=== PATIENT | female | born 1960 | race American Indian/Alaskan Native ===

== ENCOUNTER 2017-04-16 22:23 | Emergency (ER) | payer OTHER ==
[2017-04-17] MEDS ORDERED: MOTRIN PO ONE (01:33)
[2017-04-17] MEDS ORDERED: MOTRIN ONE (01:33)
--- NOTE | 2017-04-17 02:06 | Emergency Department Report ---
ED Fall HPI - General Chief Complaint: Fall Stated Complaint: FALL Time Seen by Provider: 04/17/17 01:42 Source: patient, family Mode of arrival: Wheelchair - History of Present Illness Initial Comments: Patient reports that she fell today when she was on escalator. She said she got caught and fell and hit her right shoulder and she is having pain in her right neck and right shoulder. Pain is 8 out of 10 and aching. Worse with movement better with resting. She says she is also having a headache and she hit the right side of her head when she fell and pain is also 8 out of 10 and a can. No [id number] medication taken prior to coming to the emergency room. Patient denies any nausea or vomiting. Denies any chest wall or abdominal trauma. Denies any laceration or swelling to her extremities from falling. Denies any dizziness or visual difficulties. Patient blood pressure is 188/105 and she has a blood pressure intake several blood pressure medication which she says she did not take today. MD Complaint: fall -: This evening Fall From: standing When Fall Occurred: 1-3 hours [employer] Fall Witnessed: yes, by family, yes, by bystander Place Fall Occurred: other (at the mall) Loss of Consciousness: none Prolonged Down Time?: no Symptoms Prior to Fall: none Location: head, neck Location - Extremities: Right: Shoulder (pain after fall) Severity: severe Severity scale (0 -10): 8 Quality: aching Context: tripped/slipped Associated Symptoms: headache, neck pain. denies: numbness, weakness, chest paint, shortness of breath, abdominal pain, hematuria, unable to walk, lightheaded, vertigo, confusion - Related Data Previous Rx's Medication Instructions Recorded Last Taken Type Methocarbamol [Robaxin-750] 750 mg PO Q12H PRN 6 Days #12 04/17/17 Unknown Rx tablet traMADol [Ultram] 50 mg PO Q6HR PRN 4 Days #12 tablet 04/17/17 Unknown Rx Allergies Allergy/AdvReac Type Severity Reaction Status Date / Time No Known Allergies Allergy Verified 04/16/17 23:35 ED Review of Systems ROS: Stated complaint: FALL Other details as noted in HPI Comment: All other systems reviewed and negative Constitutional: no symptoms reported Eyes: denies: eye pain, eye discharge, vision change ENT: denies: throat pain Respiratory: no symptoms reported Cardiovascular: denies: chest pain, palpitations, dyspnea on exertion, orthopnea , edema, syncope, paroxysmal nocturnal dyspnea Gastrointestinal: denies: abdominal pain, nausea, vomiting, diarrhea, constipation Genitourinary: denies: urgency, dysuria, frequency, hematuria, discharge Musculoskeletal: arthralgia, myalgia. denies: back pain, joint swelling Skin: denies: rash Neurological: headache. denies: weakness, numbness, paresthesias, confusion, abnormal gait, vertigo ED Past Medical Hx - Past Medical History Previous Medical History?: Yes Hx Hypertension: Yes - Surgical History Past Surgical History?: No - Family History Family history: hypertension - Social History Smoking Status: Never Smoker Substance Use Type: None - Medications Home Medications: Home Medications Medication Instructions Recorded Confirmed Last Taken Type Methocarbamol [Robaxin-750] 750 mg PO Q12H PRN 6 Days #12 04/17/17 Unknown Rx tablet traMADol [Ultram] 50 mg PO Q6HR PRN 4 Days #12 tablet 04/17/17 Unknown Rx ED Physical Exam - General Limitations: Language Barrier General appearance: alert, in no apparent distress - Head Head exam: Present: atraumatic, normocephalic, normal inspection - Expanded Head Exam Expanded Head exam: Absent: laceration, abrasion, contusion, hematoma, racoon eyes, shane's sign, general tenderness, tenderness of temporal artery, CSF rhinorrhea , CSF otorrhea - Eye Eye exam: Present: normal appearance, PERRL, EOMI. Absent: nystagmus, periorbital swelling, periorbital tenderness - ENT ENT exam: Present: normal exam, normal orophraynx, mucous membranes moist - Neck Neck exam: Present: normal inspection, full ROM, other (no C-spine tenderness). Absent: tenderness, meningismus, lymphadenopathy, thyromegaly - Respiratory Respiratory exam: Present: normal lung sounds bilaterally. Absent: respiratory distress, chest wall tenderness - Cardiovascular Cardiovascular Exam: Present: regular rate, normal rhythm, normal heart sounds. Absent: systolic murmur, diastolic murmur - GI/Abdominal GI/Abdominal exam: Present: soft, normal bowel sounds. Absent: distended, tenderness, guarding, rebound, rigid, organomegaly, mass, bruit, pulsatile mass , hernia - Extremities Exam Extremities exam: Present: normal inspection, full ROM, tenderness (tenderness to palpate the right shoulder.), normal capillary refill, other (no clubbing, cyanosis or edema. Positive pulses all extremities. No neurovascular compromise. Patient able to move all extremities but painful with active range of motion to the right shoulder. No bony abnormalities seen to all extremities. No bony tenderness. Patient with +5/5 movement all extremities. No joint effusion, crepitus, swelling or erythema.). Absent: pedal edema, joint swelling, calf tenderness - Expanded Upper Extremity Exam Right General: Present: normal inspection. Absent: laceration, abrasion, nail injury (#), foreign body, amputation, avulsion Shoulder Exam: Present: normal inspection, full ROM (painful to move right shoulder but she is able to do full active range of motion but reports pain.), tenderness (right shoulder joint atGHJ and AC joint), tenderness over AC joint. Absent: swelling, abrasion, laceration, ecchymosis, deformity, crepidus, dislocation, erythema Upper Arm exam: Present: normal inspection, full ROM. Absent: tenderness, swelling, abrasion, laceration, ecchymosis, deformity, crepidus, dislocation, erythema Elbow exam: Present: normal inspection, full ROM. Absent: tenderness, swelling , abrasion, laceration, ecchymosis, deformity, crepidus, dislocation, erythema, effusion, pain w/ pronation/supination, tenderness over radial head Forearm Wrist exam: Present: normal inspection, full ROM. Absent: tenderness, swelling, abrasion, laceration, ecchymosis, deformity, crepidus, dislocation, erythema, tenderness over anatomical snuff box, pain with axial thumb loading Hand Wrist exam: Present: normal inspection, full ROM. Absent: tenderness, swelling, abrasion, laceration, ecchymosis, deformity, crepidus, dislocation, erythema, amputation, nail avulsion, subungual hematoma Neuro motor exam: Present: wrist extension intact, thumb opposition intact, thumb IP flexion intact, thumb adduction intact, fingers 2-5 abduction intact Neurosensory exam: Present: 2-point discrimination, radial nerve intact, ulnar nerve intact, median nerve intact Vascular: Present: normal capillary refill, radial pulse, brachial pulse, ulnar pulse. Absent: vascular compromise, Pallo, pulse deficit radial art, pulse deficit ulnar art, pulse deficit brachial art - Back Exam Back exam: Present: normal inspection, full ROM, other ( ambulates without any difficulties.). Absent: tenderness, CVA tenderness (R), CVA tenderness (L), muscle spasm, paraspinal tenderness, vertebral tenderness, rash noted - Expanded Back Exam Expanded Back exam: Absent: saddle anesthesia Back exam: Negative Straight Leg Raising: Left, Right - Neurological Exam Neurological exam: Present: alert, oriented X3, normal gait, reflexes normal. Absent: motor sensory deficit - Expanded Neurological Exam Expanded Neurological exam: Absent: innattentive, memory loss-remote event, memory loss- recent event, ataxia, receptive aphasia, expressive aphasia, total aphasia, tremor, protecting the airway Patient oriented to: Present: person, place, time Speech: Present: fluid speech Cranial nerves: EOM's Intact: Normal, Gag Reflex: Normal, Tongue Deviation: Normal, Nystagmus: Normal, Facial Sensation: Normal Cerebellar function: Romberg: Normal Upper motor neuron: Pronator Drift: Normal, Sensory Extinction: Normal Sensory exam: Upper Extremity Light Touch: Normal, Upper Extremity Temperature: Normal, UE 2 Point Discrimination: Normal, Lower Extremity Light Touch: Normal, Lower Extremity Temperature: Normal, LE 2 Point Discrimination: Normal Motor strength exam: RUE: 5, LUE: 5, RLE: 5, LLE: 5 DTR: bicep (R): 2+, bicep (L): 2+, tricep (R): 2+, tricep (L): 2+, knee (R): 2+ , knee (L): 2+, ankle (R): 2+, ankle (L): 2+ Best Eye Response (Ivett): (4) open spontaneously Best Motor Response (Sylmar): (6) obeys commands Best Verbal Response (Ivett): (5) oriented Ivett Total: 15 - Psychiatric Psychiatric exam: Present: normal affect, normal mood - Skin Skin exam: Present: warm, dry, intact, normal color. Absent: rash ED Course Vital Signs 04/16/17 04/17/17 04/17/17 23:08 02:12 02:14 Temperature 98.5 F 98.4 F Pulse Rate 81 67 67 Respiratory 17 18 Rate Blood Pressure 188/105 171/111 Blood Pressure [Left] Blood Pressure 171/111 [Right] O2 Sat by Pulse 99 97 Oximetry 04/17/17 04:17 Temperature 98.7 F Pulse Rate 84 Respiratory 18 Rate Blood Pressure Blood Pressure 162/100 [Left] Blood Pressure [Right] O2 Sat by Pulse 100 Oximetry - Reevaluation(s) Reevaluation #1: 04/17/17 02:08 Patient here report that she fell and hit the right side of her head and she is having headache on the right side of her head and also neck pain radiated to her shoulder. Patient has elevated blood pressure and takes water pill and says she did not take it today. She was given clonidine 0.2 mg for high blood pressure, Motrin 800 mg for pain. Patient awaiting CT of the head without contrast and CT of C-spine without contrast. Reevaluation #2: 04/17/17 04:23 blood pressure is 162/100 status post clonidine. Patient has a blood pressure medication with her and I told her to go ahead and take her medication except for her HCTZ which she can take in the morning. Patient does not take her medication everyday and I told her that her CT scan shows that she has history of lacunar infarction which is a stroke and she did not know of this but she does not have any acute brain injury at this present. I discussed patient that she needs to take her blood pressure medication as prescribed to prevent having a stroke, heart attack, kidney failure leading to dialysis, . She voiced relief of headache, neck and shoulder pain after Motrin. ED Medical Decision Making - Radiology Data Radiology results: report reviewed CT scan of the head without contrast revealed remote lacunar infarct, right. No acute intracerebral hemorrhage, stroke or findings. CT scan of the C-spine reveals no acute findings. - Medical Decision Making ED course: She presents to emergency room status post fall in because she said she got stuck on the escalator. She says she fell and hit her right side of her head and right shoulder and she is reporting pain to head, neck and right shoulder. Physical findings for tenderness to palpate to C-spine without any contusion, abrasion or laceration to head. Patient also has tenderness to palpate the shoulder joints. CT scan of brain revealed old lacunar infarcts which patient was not aware of but no acute findings. CT scan of the neck reveals no acute fracture or subluxation. Patient blood pressure is elevated and she is noncompliant with taking her blood pressure medication even though she has it on her person. Patient was given clonidine 0.2 mg emergency room along with pain medication Motrin 800 mg by mouth for pain. Her blood pressure went down to 162/100 upon recheck and she said her pain is much better and her headache. Discuss findings a CT scan with patient and I told patient that she needs to take her blood pressure medication as prescribed by her primary care physician. I told patient that if she does not take her pressure medication she can't have an a stroke, heart attack, kidney disease with kidney failure and multiple other adverse event. I discussed with her she needs to keep a log of her blood pressure and follow up with her primary care physician to call and schedule an appointment. Patient took her blood pressure medication for she left the emergency room. She is on for different types of medication and says she doesn't take it every day. She was unaware that she had a stroke and I told patient that sometimes you can have a stroke and not be aware of it until there is a reason for scan of her head which happens to be today and it shows up. I discussed with her next time if she has a stroke he could be more lethal and she needs to take her blood pressure medication. She voiced understanding of CT scan results, diagnosis, medication compliance and follow-up and discharged home in stable condition with her daughter to follow up with primary care physician. I also gave her referral to orthopedic doctor Critical care attestation.: If time is entered above; I have spent that time in minutes in the direct care of this critically ill patient, excluding procedure time. ED Disposition Clinical Impression: Arthralgia of right shoulder region, Neck pain, Elevated blood pressure reading with diagnosis of hypertension, Non compliance with medical treatment Accidental fall on or from escalator Qualifiers: Encounter type: initial encounter Qualified Code(s): W10.0XXA - Fall (on)(from ) escalator, initial encounter Headache, post-traumatic, acute Qualifiers: Intractability: not intractable Qualified Code(s): G44.319 - Acute post- traumatic headache, not intractable Closed head injury without concussion Qualifiers: Encounter type: initial encounter Qualified Code(s): S09.90XA - Unspecified injury of head, initial encounter Disposition: TO HOME OR SELFCARE Is pt being admited?: No Does the pt Need Aspirin: No Condition: Stable Instructions: Muscle Strain (ED), Minor Head Injury (ED), Musculoskeletal Pain (ED), DASH Eating Plan (ED), Low Sodium Diet (ED), Hypertension (ED), Arthralgia (ED), Fall Prevention (ED) Additional Instructions: Please follow up with primary care as recommended and if he do not have a primary care physician he can follow-up at some outside Medical Center in 3-5 days. Take blood pressure medication as prescribed and to not miss any day as this is very important. Your CT scan of the head reveals that you had an old stroke and there are no new findings. Elevated blood pressure could cause this and also could cause heart attack, kidney failure and . Increase fluid intake Take Ultram and Robaxin for pain and muscle strain but please do not drive or operate heavy machinery as these medication causes drowsiness. Please see discharge instruction paperwork on high blood pressure and diet specific to Hypertension Please follow-up tomorrow 24 hours after head injury for reevaluation. You can follow up with urgent care or return to the emergency room. read discharge instruction on closed head injury. follow-up with orthopedic doctor as instructed. Please develop, shortness of breath, return headache, blurred vision, dizziness , chest pain, dizziness, increased sleepiness and abnormal gait which his unsteadiness on feet , difficulty speaking, slurred speech and facial droop , Please return to the emergency room [facility] Prescriptions: Methocarbamol [Robaxin-750] 750 mg PO Q12H PRN 6 Days #12 tablet PRN Reason: Muscle Spasm traMADol [Ultram] 50 mg PO Q6HR PRN 4 Days #12 tablet PRN Reason: Pain Referrals: return to, urgent care or emergency room [Other] - 04/17/17 5:00 pm (Follow-up visit status post closed head injury.) [facility] [Outside] - 04/19/17 PRIMARY CAREMD [Primary Care Provider] - 04/19/17 SURI DEVRIES MD [Staff Physician] - 3-5 Days Forms: Accompanied Note
[2017-04-17] MEDS ORDERED: CATAPRES PO ONE (02:08)
--- NOTE | 2017-04-17 03:07 | Cat Scan Report ---
FINAL REPORT EXAM: CT HEAD/BRAIN WO CON HISTORY: fall with head injury and headache TECHNIQUE: Routine axial imaging was obtained of the brain without IV contrast. FINDINGS: There is mild generalized atrophy. There is a remote lacunar infarct in the right caudate nucleus. There is no evidence of acute stroke or hemorrhage. The ventricular system is appropriate in size and is symmetric. The visualized sinuses are clear. There is no evidence of skull fracture or scalp injury. IMPRESSION: Mild generalized atrophy. Remote lacunar infarct in the right caudate nucleus. No evidence of acute stroke or hemorrhage.
--- NOTE | 2017-04-17 03:18 | Cat Scan Report ---
FINAL REPORT EXAM: CT CERVICAL SPINE WO CON HISTORY: fall with head injury,neck pain radiating/shoulder TECHNIQUE: Routine axial imaging was obtained of the cervical spine without IV contrast with sagittal and coronal reconstructions. FINDINGS: The disc heights and alignment appear normal. The canal size is normal. There is no evidence of fracture. The nerve roots exit normally. The prevertebral soft tissues and C1-C2 articulation appear intact IMPRESSION: Within normal limits.
[2017-04-17 04:18] VITALS: BP 162/100
== END 2017-04-17 04:47 | disposition home or self-care (01) ==
LOC: ED 22:23
DX: G44.319 Acute post-traumatic headache, not intractable (principal); S09.90XA Unspecified injury of head, initial encounter; M25.511 Pain in right shoulder; M54.2 Cervicalgia; I10 Essential (primary) hypertension; W01.0XXA Fall on same level from slipping, tripping and stumbling without subsequent striking against object, initial encounter; Y93.89 Activity, other specified; Y99.8 Other external cause status; Y92.59 Other trade areas as the place of occurrence of the external cause
CPT/HCPCS: 70450; 72125